=== PATIENT | male | born 1995 | race Caucasian/White ===

== ENCOUNTER 2018-06-23 11:46 | Emergency (ER) | payer SELFPAY ==
[~2018-06-23] VITALS: Ht 188 cm; Wt 77.1 kg
== END 2018-06-23 12:32 | disposition home or self-care (01) ==
LOC: ED 11:46
DX: S61.217A Laceration without foreign body of left little finger without damage to nail, initial encounter (principal); W45.8XXA Other foreign body or object entering through skin, initial encounter; Y92.89 Other specified places as the place of occurrence of the external cause; Y99.0 Civilian activity done for income or pay

== ENCOUNTER 2018-07-10 09:31 | Emergency (ER) | payer OTHER ==
[~2018-07-10] VITALS: Ht 188 cm; Wt 77.1 kg
--- OUTSIDE RECORDS SUMMARY | 2018-07-10 09:36 | XMS ---
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 Lawson has no Care Guidelines for this patient. Justin [facility] (12 MO.) [facility] T[facility] NOTE: Visits indicate total known visits. ED/C VISIT TRACKING (12 MO.) 07/10/2018 09:32 [facility] [place] TYPE: Emergency COMPLAINT: - CHEST PAIN/ANXIETY 06/23/2018 11:[address] [facility] [place] TYPE: Emergency COMPLAINT: - L PINKY LAC/MSE TO CLINIC DIAGNOSES: - Other specified places as the place of occurrence of the external cause - Laceration without foreign body of left little finger without damage to nail, initial encounter - Unspecified injury of left wrist, hand and finger(s), initial encounter - Other foreign body or object entering through skin, initial encounter - Civilian activity done for income or pay INPATIENT VISIT TRACKING (12 MO.) No inpatient visits to display in this time frame [email or web address]
--- NOTE | 2018-07-11 14:50 | EKG ---
[facility] [address] [place], [place] [address] Signed Sinus rhythm with short NM Otherwise normal ECG No previous ECGs available Confirmed by MG CAIN MD ([id number] on 07/11/2018 2:50:39 PM Electronically Signed By: MG CAIN MD 07/11/18 1450 PATIENT NAME: MARGO ARNOLD Electrocardiogram DATE OF : [birth year] PHYSICIAN: MG CAIN MD REPORT #: [id number] REPORT IS CONFIDENTIAL AND NOT TO BE RELEASED WITHOUT AUTHORIZATION
== END 2018-07-10 11:43 | disposition home or self-care (01) ==
LOC: ED 09:31
DX: F41.9 Anxiety disorder, unspecified (principal); F17.200 Nicotine dependence, unspecified, uncomplicated
CPT/HCPCS: 80053; 84484; 85025; 93005; 93010; 99283

== ENCOUNTER 2025-09-12 09:50 | Emergency (ER) | payer OTHER ==
[~2025-09-12] VITALS: Ht 188 cm; Wt 70.2 kg
[2025-09-12] MEDS ORDERED: THIAMINE HCL 200 MG/2 ML VIAL IV ONE (10:00)
[2025-09-12] MEDS ORDERED: FOLIC ACID 1 MG/0.2 ML ML IV ONE (10:00)
[2025-09-12] MEDS ORDERED: LORazepam 2 MG/ML VIAL IV ONE (10:00)
[2025-09-12] MEDS ORDERED: SODIUM CHLORIDE 0.9% 1,000 ML IV ONE (10:00)
[2025-09-12 10:49] LABS: BASOPHILS 0.5 % (0.2-1.2); EOSINOPHILS 0.3 % (0.8-7.0); LYMPHOCYTES 7.3 % (21.8-53.1); MCH 35.5 PG (25.7-32.2); MCHC 35.8 g/dL (32.3-36.5); MCV 99.3 fL (79.0-92.2); MONOCYTES 9.2 % (5.3-12.2); NEUTROPHILS 82.4 % (34.0-67.9); RBC 4.28 M/uL (4.63-6.08)
[2025-09-12 11:08] LABS: ALCOHOL, MEDICAL <3 ng/dL (<3); ALT (SGPT) 98 U/L (14-59); AST (SGOT) 73 U/L (15-37); GLOMERULAR FILTRATION RATE,EST 132 mL/min (>60); PROTEIN, TOTAL 7.4 g/dL (6.4-8.2); UREA NITROGEN 6 mg/dL (7-18)
[2025-09-12] MEDS ORDERED: MAGNESIUM OXIDE 400 MG TABLET PO ONE (11:30)
[2025-09-12] MEDS ORDERED: CHLORDIAZEPOXIDE 25 MG CAP PO ONE (11:30)
[2025-09-12] MEDS ORDERED: ONDANSETRON ODT8 MG PO (12:13)
[2025-09-12] MEDS ORDERED: NALTREXONE HCL50 MG PO (12:13)
[2025-09-12] MEDS ORDERED: CHLORDIAZEPOXID25 MG PO (12:13)
[2025-09-12 12:26] VITALS: BP 150/105
== END 2025-09-12 12:35 | disposition home or self-care (01) ==
LOC: ED 09:50
PROVIDERS: Emergency Medicine
DX: F10.139 Alcohol abuse with withdrawal, unspecified (principal); R56.9 Unspecified convulsions; Y90.0 Blood alcohol level of less than 20 mg/100 ml; F17.200 Nicotine dependence, unspecified, uncomplicated
CPT/HCPCS: 36415; 80053; 83690; 83735; 85025; 96361; 96374; 96375; 99285-25; G0480; J2060; J2405; J3411; J7030